=== PATIENT | female | born 1965 | race Caucasian/White ===

== ENCOUNTER 2017-08-31 11:52 | Emergency (ER) | payer BC, SELFPAY ==
[2017-08-31 12:01] VITALS: BP 147/100; PULSE 74; RESP 20; TEMP 36.7; O2SAT 100
--- NOTE | 2017-08-31 12:05 | ED.UPPEXIN ---
HPI - Extremity Injury (Upper) <Thao Saldana PA-C - Last Filed: 08/31/17 15:55> General Chief Complaint: Extremity Injury, Upper Stated Complaint: FELL, KNOCKED SHOULDER OUT OF SOCKET Time Seen by Provider: 08/31/17 12:05 Source: patient Mode of arrival: ambulatory Limitations: no limitations History of Present Illness HPI narrative: This healthy 52-year-old female was out on a boat tour when she missed a step and pitched forward with an outstretched arm. She states that she dislocated the right shoulder. She states that this has happened 3 or 4 times in her life previously and it has always be located with gentle movement, however this time it would not go back in and she had severe pain. She states that about an hour later she felt like it popped in by itself while she was just sitting with it in neutral position. She states that pain is more of a dull ache now. She denies any feeling of weakness or paresthesia in the arm. Denies any other injury. Review of Systems <Thao Saldana PA-C - Last Filed: 08/31/17 15:55> Review of Systems All systems reviewed & are unremarkable except as noted in HPI and below Exam <Thao Saldana PA-C - Last Filed: 08/31/17 15:55> Narrative Exam Narrative: GENERAL APPEARANCE: Patient sitting comfortably, in no distress. LUNGS: Clear to auscultation bilaterally. HEART: Rate and rhythm regular without murmur, normal S1 and S2, no S3 or S4. MUSCULOSKELETAL: Shoulders are symmetric, right shoulder no tenderness to palpation over any of the bony prominences or soft tissues. Program Advisor strength 5/5 NEUROVASCULAR: Right hand fingers are warm and pink with brisk cap refill, radial and ulnar pulses intact, sensation grossly intact Initial Vital Signs Initial Vital Signs: Vital Signs Temperature 98.0 F 08/31/17 12:01 Pulse Rate 74 08/31/17 12:01 Respiratory Rate 20 08/31/17 12:01 Blood Pressure 147/100 H 08/31/17 12:01 Pulse Oximetry 100 08/31/17 12:01 <Chester Lehman MD - Last Filed: 08/31/17 17:02> Initial Vital Signs Initial Vital Signs: Vital Signs Temperature 98.0 F 08/31/17 12:01 Pulse Rate 74 08/31/17 12:01 Respiratory Rate 20 08/31/17 12:01 Blood Pressure 147/100 H 08/31/17 12:01 Pulse Oximetry 100 08/31/17 12:01 Course <Thao Saldana PA-C - Last Filed: 08/31/17 15:55> Hospital Course: Patient was placed in a sling and advised orthopedic follow-up is needed. She is returning home over the weekend, so was given a CD copy of x-ray and will contact her PCP right away to get referred to Orthopedics. She was advised to return if any acutely worsening symptoms over the weekend again and is agreeable Orders Ordered: ED Orders 08/31/17 12:06 XR shoulder RT min 2V Stat Vital Signs - 8 hr 08/31/17 12:01 08/31/17 12:15 08/31/17 14:24 Temperature 98.0 F 98.0 F Pulse Rate 74 74 63 Respiratory Rate 20 20 16 Blood Pressure 147/100 H 147/100 H Blood Pressure [Left Arm] 138/91 H Pulse Oximetry 100 100 97 <Chester Lehman MD - Last Filed: 08/31/17 17:02> Orders Ordered: ED Orders 08/31/17 12:06 XR shoulder RT min 2V Stat Vital Signs - 8 hr 08/31/17 12:01 08/31/17 12:15 08/31/17 14:24 Temperature 98.0 F 98.0 F Pulse Rate 74 74 63 Respiratory Rate 20 20 16 Blood Pressure 147/100 H 147/100 H Blood Pressure [Left Arm] 138/91 H Pulse Oximetry 100 100 97 MDM - Extremity Injury (Upper) <Thao Saldana PA-C - Last Filed: 08/31/17 15:55> Imaging Data extrem: Radiologist's impression: View Report History [address] [address] XRay Report Signed Patient: SHALA RENDON MR#: [id number] : 1965 Acct:[id number] Age/Sex: 52 / F Date of Service: 08/31/17 Loc: ED Accession Number: [id number] Procedure: XR shoulder RT min 2V Ordering Provider: Chester Lehman M.D. PROCEDURE: XR SHOULDER RT MIN 2V INDICATIONS: disslocation TECHNIQUE: 3 views of the shoulder were acquired. COMPARISON: None. FINDINGS: Bones: No definite fractures or dislocations, but on the internal rotation view there is a small calcific density at the lateral border of the humeral head and also a faint lucency laterally involving the area of the articular surface of the humeral head measuring approximately 1.3 cm in maximal dimension. This may represent a Hill-Sachs impaction fracture postero-laterally related to prior anterior dislocation.. No suspicious bony lesions. Visualized ribs appear intact. Soft tissues: No suspicious soft tissue calcifications. IMPRESSION: Suspect Hill-Sachs impaction fracture at the posterolateral aspect of the humeral head articular surface in the setting of acute but now reduced dislocation. Dictated by: Lenin Leyva M.D. on 08/31/2017 at 12:29 Approved by: Lenin Leyva M.D. on 08/31/2017 at 12:31 Discharge Plan Departure Patient Disposition: Home, Self-Care Clinical Impression: Hill-Sachs fracture of right humerus Discharge Date/Time: 08/31/17 14:29 Interventions: ED Discharge Assessment Last Done: 08/31/17 14:26 Instructions: DI for Shoulder Dislocation Activity Restrictions/Additional Instructions: The xray shows that you may have had a small fracture where the shoulder dislocated, called a Hill Sachs fracture. From what you describe about your history, you may have a bone abnormality in the shoulder socket that makes you more prone to dislocation. The shoulder joint is in place now, and your circulation and nervous system seen to be normal, so you can continue to wear the sling, but you should follow up with an nanofabrication specialist when you get home, so please contact your primary care provider today or at least by Sunday to work on getting an appointment in the next week. Make sure you take the disc that we gave you with your x-ray films. Take ibuprofen 800 mg every 8 hr as needed for pain and you can add Tylenol if needed. You should follow up if any acutely worsening symptoms while you are here for the weekend. Referrals: Constance Berry [Other]
[2017-08-31 12:15] VITALS: BP 147/100; PULSE 74; RESP 20; TEMP 36.7; O2SAT 100
[2017-08-31 14:24] VITALS: BP 138/91; PULSE 63; RESP 16; O2SAT 97
== END 2017-08-31 14:29 | disposition home or self-care (01) ==
PROVIDERS: Emergency Provider Internal Medicine
DX: S42.291A Other displaced fracture of upper end of right humerus, initial encounter for closed fracture (principal); W19.XXXA Unspecified fall, initial encounter
CPT/HCPCS: 73030; 99282; 99283